=== PATIENT | female | born 1940 | race Two or more races ===

== ENCOUNTER 2017-10-07 09:33 | Outpatient (CLI) | payer MEDICARE | END 2017-10-07 11:33 | disposition home or self-care (01) | LOC: ECT 09:33 | DX: F33.3 Major depressive disorder, recurrent, severe with psychotic symptoms (principal); I12.9 Hypertensive chronic kidney disease with stage 1 through stage 4 chronic kidney disease, or unspecified chronic kidney disease; N18.9 Chronic kidney disease, unspecified; E78.5 Hyperlipidemia, unspecified; N28.1 Cyst of kidney, acquired; M81.0 Age-related osteoporosis without current pathological fracture; Z91.5 Personal history of self-harm; Z81.8 Family history of other mental and behavioral disorders; Z88.8 Allergy status to other drugs, medicaments and biological substances ==

== ENCOUNTER 2017-10-10 05:41 | Outpatient (RCR) | payer MEDICARE ==
[~2017-10-10] VITALS: Ht 153 cm; Wt 46.3 kg
[2017-10-10] MEDS ORDERED: Succinylcholine 20mg/ml 10ml vial ONE ×2 (05:42)
[2017-10-10] MEDS ORDERED: NS 500ML ONE ×2 (05:42)
[2017-10-10] MEDS ORDERED: Methohexital Sodium Syr 100mg/10ml IVP ONE ×2 (05:42)
[2017-10-10] MEDS ORDERED: Labetalol 5mg/ml 20ml vial IV ONE (05:42)
[2017-10-10 09:38] VITALS: BP 160/82
[2017-10-10] MEDS ORDERED: Sodium Chloride 500ML 500 ML IV ONE (09:54)
[2017-10-10 09:55] VITALS: BP 211/88
[2017-10-10 10:00] VITALS: BP 162/55
[2017-10-10 10:05] VITALS: BP 153/65
[2017-10-10 10:10] VITALS: BP 148/55
[2017-10-10 13:21] VITALS: BP 160/82
[2017-10-13 08:50] VITALS: BP 148/77
[2017-10-13] MEDS ORDERED: Methohexital Sodium Syr 100mg/10ml IVP ONE (09:14)
[2017-10-13] MEDS ORDERED: Labetalol 5mg/ml 20ml vial IV ONE (09:14)
[2017-10-13] MEDS ORDERED: NS 500ML ONE (09:14)
[2017-10-13] MEDS ORDERED: Succinylcholine 20mg/ml 10ml vial ONE (09:14)
[2017-10-13] MEDS ORDERED: Esmolol 100mg/10ml Inj ONE (09:14)
[2017-10-13] MEDS ORDERED: Sodium Chloride 500ML 500 ML IV ONE (09:14)
[2017-10-13 09:20] VITALS: BP 133/56
[2017-10-13 09:25] VITALS: BP 138/57
[2017-10-13 09:30] VITALS: BP 132/45
[2017-10-13 09:35] VITALS: BP 128/48
[2017-10-13 09:40] VITALS: BP 135/48
[2017-10-15 08:53] VITALS: BP 142/63
[2017-10-15] MEDS ORDERED: Methohexital Sodium Syr 100mg/10ml IVP ONE (09:00)
[2017-10-15] MEDS ORDERED: Succinylcholine 20mg/ml 10ml vial ONE (09:00)
[2017-10-15] MEDS ORDERED: NS 500ML ONE (09:00)
[2017-10-15] MEDS ORDERED: Labetalol 5mg/ml 20ml vial IV ONE (09:00)
[2017-10-15 09:20] VITALS: BP 100/60
[2017-10-15 09:25] VITALS: BP 145/59
[2017-10-15 09:30] VITALS: BP 148/56
[2017-10-15 09:35] VITALS: BP 150/58
[2017-10-16] MEDS ORDERED: Sodium Chloride 500ML 500 ML IV ONE (09:17)
[2017-10-17] MEDS ORDERED: NS 500ML ONE (08:00)
[2017-10-17] MEDS ORDERED: Labetalol 5mg/ml 20ml vial IV ONE (08:00)
[2017-10-17] MEDS ORDERED: Methohexital Sodium Syr 100mg/10ml IVP ONE (08:00)
[2017-10-17] MEDS ORDERED: Succinylcholine 20mg/ml 10ml vial ONE (08:00)
[2017-10-17 09:16] VITALS: BP 151/71
[2017-10-17] MEDS ORDERED: Sodium Chloride 500ML 500 ML IV ONE (09:41)
[2017-10-17 09:45] VITALS: BP 140/49
[2017-10-17 09:50] VITALS: BP 142/45
[2017-10-17 09:55] VITALS: BP 133/47
[2017-10-17 10:00] VITALS: BP 136/47
[2017-10-20 09:03] VITALS: BP 161/77
[2017-10-20 09:20] VITALS: BP 164/89
[2017-10-20] MEDS ORDERED: Sodium Chloride 500ML 500 ML IV ONE (09:20)
[2017-10-20 09:25] VITALS: BP 177/86
[2017-10-20 09:30] VITALS: BP 159/61
[2017-10-20 09:35] VITALS: BP 151/57
[2017-10-22] MEDS ORDERED: Succinylcholine 20mg/ml 10ml vial ONE (07:00)
[2017-10-22] MEDS ORDERED: Methohexital Sodium Syr 100mg/10ml IVP ONE (07:00)
[2017-10-22] MEDS ORDERED: NS 500ML ONE (07:00)
[2017-10-22] MEDS ORDERED: Labetalol 5mg/ml 20ml vial IV ONE (07:00)
[2017-10-22 10:55] VITALS: BP 177/62
[2017-10-22] MEDS ORDERED: Sodium Chloride 500ML 500 ML IV ONE (11:15)
[2017-10-22 11:20] VITALS: BP 219/103
[2017-10-22 11:25] VITALS: BP 183/68
[2017-10-22 11:30] VITALS: BP 160/63
[2017-10-22 11:35] VITALS: BP 158/62
[2017-10-27] MEDS ORDERED: Succinylcholine 20mg/ml 10ml vial ONE (06:00)
[2017-10-27] MEDS ORDERED: Esmolol 100mg/10ml Inj ONE (06:00)
[2017-10-27] MEDS ORDERED: NS 500ML ONE (06:00)
[2017-10-27] MEDS ORDERED: Methohexital Sodium Syr 100mg/10ml IVP ONE (06:00)
[2017-10-27] MEDS ORDERED: Labetalol 5mg/ml 20ml vial IV ONE (06:00)
== END 2017-10-29 | disposition home or self-care (01) ==
LOC: ECT 05:41
DX: F33.3 Major depressive disorder, recurrent, severe with psychotic symptoms (principal); E78.5 Hyperlipidemia, unspecified; M81.0 Age-related osteoporosis without current pathological fracture; I12.9 Hypertensive chronic kidney disease with stage 1 through stage 4 chronic kidney disease, or unspecified chronic kidney disease; N18.9 Chronic kidney disease, unspecified; N25.81 Secondary hyperparathyroidism of renal origin
CPT/HCPCS: 90870; J0330; J7040

== ENCOUNTER 2017-11-03 06:05 | Outpatient (RCR) | payer MEDICARE ==
[~2017-11-03] VITALS: Ht 152.4 cm; Wt 46.3 kg
[2017-11-03] MEDS ORDERED: NS 500ML ONE (06:06)
[2017-11-03] MEDS ORDERED: Succinylcholine 20mg/ml 10ml vial ONE (06:06)
[2017-11-03] MEDS ORDERED: Labetalol 5mg/ml 20ml vial IV ONE (06:06)
[2017-11-03] MEDS ORDERED: Methohexital Sodium Syr 100mg/10ml IVP ONE (06:06)
[2017-11-03 09:15] VITALS: BP 174/77
[2017-11-03 09:45] VITALS: BP 175/65
[2017-11-03] MEDS ORDERED: Sodium Chloride 500ML 500 ML IV ONE (09:48)
[2017-11-03 09:50] VITALS: BP 156/75
[2017-11-03 09:55] VITALS: BP 154/53
[2017-11-03 10:00] VITALS: BP 156/56
[2017-11-03 10:05] VITALS: BP 146/54
[2017-11-14] MEDS ORDERED: Methohexital Sodium Syr 100mg/10ml IVP ONE (07:00)
[2017-11-14] MEDS ORDERED: NS 500ML ONE (07:00)
[2017-11-14] MEDS ORDERED: Succinylcholine 20mg/ml 10ml vial ONE (07:00)
[2017-11-14] MEDS ORDERED: Labetalol 5mg/ml 20ml vial IV ONE (07:00)
[2017-11-14 08:50] VITALS: BP 163/76
[2017-11-14] MEDS ORDERED: Sodium Chloride 500ML 500 ML IV ONE (09:06)
[2017-11-14 09:10] VITALS: BP 168/84
[2017-11-14 09:15] VITALS: BP 168/84
[2017-11-14 09:20] VITALS: BP 153/65
[2017-11-14 09:25] VITALS: BP 160/64
== END 2017-11-26 | disposition home or self-care (01) ==
LOC: ECT 06:05
DX: F33.3 Major depressive disorder, recurrent, severe with psychotic symptoms (principal)
CPT/HCPCS: 90870; J0330; J7040

== ENCOUNTER 2017-12-01 08:48 | Outpatient (RCR) | payer MEDICARE ==
[~2017-12-01] VITALS: Ht 152.4 cm; Wt 46.3 kg
[2017-12-01] MEDS ORDERED: NS 500ML ONE (08:49)
[2017-12-01] MEDS ORDERED: Methohexital Sodium Syr 100mg/10ml IVP ONE (08:49)
[2017-12-01] MEDS ORDERED: Succinylcholine 20mg/ml 10ml vial ONE (08:49)
[2017-12-01] MEDS ORDERED: Labetalol 5mg/ml 20ml vial IV ONE (08:49)
[2017-12-01 09:37] VITALS: BP 156/67
[2017-12-01 09:50] VITALS: BP 222/113
[2017-12-01] MEDS ORDERED: Sodium Chloride 500ML 500 ML IV ONE (09:50)
[2017-12-01 09:55] VITALS: BP 166/60
[2017-12-01 10:00] VITALS: BP 157/93
[2017-12-01 10:05] VITALS: BP 143/52
[2017-12-24] MEDS ORDERED: Succinylcholine 20mg/ml 10ml vial ONE (08:00)
[2017-12-24] MEDS ORDERED: Methohexital Sodium Syr 100mg/10ml IVP ONE (08:00)
[2017-12-24] MEDS ORDERED: Labetalol 5mg/ml 20ml vial IV ONE (08:00)
[2017-12-24] MEDS ORDERED: NS 500ML ONE (08:00)
[2017-12-24 09:25] VITALS: BP 142/63
[2017-12-24] MEDS ORDERED: Sodium Chloride 500ML 500 ML IV ONE (09:52)
[2017-12-24 09:55] VITALS: BP 113/88
[2017-12-24 10:00] VITALS: BP 114/62
[2017-12-24 10:05] VITALS: BP 108/60
[2017-12-24 10:10] VITALS: BP 127/60
== END 2017-12-27 | disposition home or self-care (01) ==
LOC: ECT 08:48
DX: F33.3 Major depressive disorder, recurrent, severe with psychotic symptoms (principal)
CPT/HCPCS: 90870; J0330; J7040

== ENCOUNTER 2018-01-21 06:57 | Outpatient (RCR) | payer MEDICARE ==
[~2018-01-21] VITALS: Ht 33 cm; Wt 0.5 kg
[2018-01-21] MEDS ORDERED: NS 500ML ONE (06:58)
[2018-01-21] MEDS ORDERED: Succinylcholine 20mg/ml 10ml vial ONE (06:58)
[2018-01-21] MEDS ORDERED: Methohexital Sodium Syr 100mg/10ml IVP ONE (06:58)
[2018-01-21] MEDS ORDERED: Labetalol 5mg/ml 20ml vial IV ONE (06:58)
[2018-01-21 08:59] VITALS: BP 159/80
[2018-01-21] MEDS ORDERED: Sodium Chloride 500ML 500 ML IV ONE (09:16)
[2018-01-21 09:20] VITALS: BP 169/64
[2018-01-21 09:25] VITALS: BP 150/57
[2018-01-21 09:30] VITALS: BP 137/62
[2018-01-21 09:35] VITALS: BP 146/57
[2018-01-21 09:40] VITALS: BP 138/43
== END 2018-01-26 | disposition home or self-care (01) ==
LOC: ECT 06:57
DX: F33.3 Major depressive disorder, recurrent, severe with psychotic symptoms (principal)
CPT/HCPCS: 90870; J0330; J7040

== ENCOUNTER 2018-02-20 06:43 | Outpatient (RCR) | payer MEDICARE ==
[~2018-02-20] VITALS: Ht 152.4 cm; Wt 102.0 kg
[2018-02-20] MEDS ORDERED: Succinylcholine 20mg/ml 10ml vial ONE (06:44)
[2018-02-20] MEDS ORDERED: Labetalol 5mg/ml 20ml vial IV ONE (06:44)
[2018-02-20] MEDS ORDERED: Methohexital Sodium Syr 100mg/10ml IVP ONE (06:44)
[2018-02-20] MEDS ORDERED: NS 500ML ONE (06:44)
[2018-02-20 07:50] VITALS: BP 158/79
[2018-02-20] MEDS ORDERED: Sodium Chloride 500ML 500 ML IV ONE (08:08)
[2018-02-20 08:10] VITALS: BP 167/68
[2018-02-20 08:15] VITALS: BP 159/69
[2018-02-20 08:20] VITALS: BP 141/53
[2018-02-20 08:25] VITALS: BP 144/60
== END 2018-02-26 | disposition home or self-care (01) ==
LOC: ECT 06:43
DX: F33.3 Major depressive disorder, recurrent, severe with psychotic symptoms (principal)
CPT/HCPCS: 90870; J0330; J7040

== ENCOUNTER 2018-03-18 04:44 | Outpatient (RCR) | payer MEDICARE ==
[~2018-03-18] VITALS: Ht 152.4 cm; Wt 46.3 kg
[2018-03-18] MEDS ORDERED: NS 500ML ONE (04:45)
[2018-03-18] MEDS ORDERED: Methohexital Sodium Syr 100mg/10ml IVP ONE (04:45)
[2018-03-18] MEDS ORDERED: Succinylcholine 20mg/ml 10ml vial ONE (04:45)
[2018-03-18] MEDS ORDERED: Labetalol 5mg/ml 20ml vial IV ONE (04:45)
[2018-03-18 08:07] VITALS: BP 151/67
[2018-03-18] MEDS ORDERED: Sodium Chloride 500ML 500 ML IV ONE (08:22)
[2018-03-18 08:25] VITALS: BP 182/64
[2018-03-18 08:30] VITALS: BP 151/68
[2018-03-18 08:35] VITALS: BP 134/73
[2018-03-18 08:40] VITALS: BP 140/51
== END 2018-03-28 | disposition home or self-care (01) ==
LOC: ECT 04:44
DX: F33.3 Major depressive disorder, recurrent, severe with psychotic symptoms (principal)
CPT/HCPCS: 90870; J0330; J7040

== ENCOUNTER 2018-04-15 04:51 | Outpatient (RCR) | payer MEDICARE ==
[~2018-04-15] VITALS: Ht 152.4 cm; Wt 46.3 kg
[2018-04-15] MEDS ORDERED: Labetalol 5mg/ml 20ml vial IV ONE (04:52)
[2018-04-15] MEDS ORDERED: NS 500ML ONE (04:52)
[2018-04-15] MEDS ORDERED: Methohexital Sodium Syr 100mg/10ml IVP ONE (04:52)
[2018-04-15] MEDS ORDERED: Succinylcholine 20mg/ml 10ml vial ONE (04:52)
[2018-04-15 08:15] VITALS: BP 156/63
[2018-04-15] MEDS ORDERED: Sodium Chloride 500ML 500 ML IV ONE (08:30)
[2018-04-15 08:35] VITALS: BP 118/100
[2018-04-15 08:40] VITALS: BP 153/53
[2018-04-15 08:45] VITALS: BP 139/65
[2018-04-15 08:50] VITALS: BP 120/41
== END 2018-04-28 | disposition home or self-care (01) ==
LOC: ECT 04:51
DX: F33.3 Major depressive disorder, recurrent, severe with psychotic symptoms (principal)
CPT/HCPCS: 90870; J0330; J7040

== ENCOUNTER 2018-05-15 04:28 | Outpatient (RCR) | payer MEDICARE ==
[~2018-05-15] VITALS: Ht 152.4 cm; Wt 46.3 kg
[2018-05-15] MEDS ORDERED: NS 500ML ONE (04:29)
[2018-05-15] MEDS ORDERED: Methohexital Sodium Syr 100mg/10ml IVP ONE (04:29)
[2018-05-15] MEDS ORDERED: Labetalol 5mg/ml 20ml vial IV ONE (04:29)
[2018-05-15] MEDS ORDERED: Succinylcholine 20mg/ml 10ml vial ONE (04:29)
[2018-05-15 08:22] VITALS: BP 153/72
[2018-05-15] MEDS ORDERED: Sodium Chloride 500ML 500 ML IV ONE (08:38)
[2018-05-15 08:40] VITALS: BP 143/61
[2018-05-15 08:45] VITALS: BP 135/58
[2018-05-15 08:50] VITALS: BP 125/43
[2018-05-15 08:55] VITALS: BP 139/41
== END 2018-05-29 | disposition home or self-care (01) ==
LOC: ECT 04:28
DX: F33.3 Major depressive disorder, recurrent, severe with psychotic symptoms (principal)
CPT/HCPCS: 90870; J0330; J7040

== ENCOUNTER 2018-06-17 05:55 | Outpatient (RCR) | payer MEDICARE ==
[~2018-06-17] VITALS: Ht 30.5 cm; Wt 0.5 kg
[2018-06-17] MEDS ORDERED: NS 500ML ONE (05:56)
[2018-06-17] MEDS ORDERED: Methohexital Sodium Syr 100mg/10ml IVP ONE (05:56)
[2018-06-17] MEDS ORDERED: Succinylcholine 20mg/ml 10ml vial ONE (05:56)
[2018-06-17] MEDS ORDERED: Labetalol 5mg/ml 20ml vial IV ONE (05:56)
[2018-06-17 10:17] VITALS: BP 163/89
[2018-06-17] MEDS ORDERED: Sodium Chloride 500ML 500 ML IV ONE (10:31)
[2018-06-17 10:35] VITALS: BP 197/84
[2018-06-17 10:40] VITALS: BP 139/51
[2018-06-17 10:45] VITALS: BP 132/51
[2018-06-17 10:50] VITALS: BP 137/48
== END 2018-06-28 | disposition home or self-care (01) ==
LOC: ECT 05:55
DX: F33.3 Major depressive disorder, recurrent, severe with psychotic symptoms (principal)
CPT/HCPCS: 90870; J0330; J7040

== ENCOUNTER 2018-07-22 04:44 | Outpatient (RCR) | payer MEDICARE ==
[~2018-07-22] VITALS: Ht 30.5 cm; Wt 0.5 kg
[2018-07-22] MEDS ORDERED: Methohexital Sodium Syr 100mg/10ml IVP ONE (04:45)
[2018-07-22] MEDS ORDERED: Succinylcholine 20mg/ml 10ml vial ONE (04:45)
[2018-07-22] MEDS ORDERED: Labetalol 5mg/ml 20ml vial IV ONE (04:45)
[2018-07-22] MEDS ORDERED: NS 500ML ONE (04:45)
[2018-07-22 10:02] VITALS: BP 142/74
[2018-07-22] MEDS ORDERED: Sodium Chloride 500ML 500 ML IV ONE (10:18)
[2018-07-22 10:20] VITALS: BP 169/71
[2018-07-22 10:25] VITALS: BP 152/54
[2018-07-22 10:30] VITALS: BP 129/52
[2018-07-22 10:35] VITALS: BP 130/54
== END 2018-07-29 | disposition home or self-care (01) ==
LOC: ECT 04:44
DX: F33.3 Major depressive disorder, recurrent, severe with psychotic symptoms (principal)
CPT/HCPCS: 90870; J0330; J7040

== ENCOUNTER 2018-08-26 07:04 | Outpatient (RCR) | payer MEDICARE ==
[~2018-08-26] VITALS: Ht 152.4 cm; Wt 46.3 kg
[2018-08-26] MEDS ORDERED: NS 500ML ONE (07:05)
[2018-08-26] MEDS ORDERED: Labetalol 5mg/ml 20ml vial IV ONE (07:05)
[2018-08-26] MEDS ORDERED: Methohexital Sodium Syr 100mg/10ml IVP ONE (07:05)
[2018-08-26] MEDS ORDERED: Succinylcholine 20mg/ml 10ml vial ONE (07:05)
[2018-08-26 10:00] VITALS: BP 140/73
[2018-08-26] MEDS ORDERED: Sodium Chloride 500ML 500 ML IV ONE (10:21)
[2018-08-26 10:25] VITALS: BP 194/79
[2018-08-26 10:30] VITALS: BP 189/71
[2018-08-26 10:35] VITALS: BP 156/67
[2018-08-26 10:40] VITALS: BP 136/49
== END 2018-08-28 | disposition home or self-care (01) ==
LOC: ECT 07:04
DX: F33.3 Major depressive disorder, recurrent, severe with psychotic symptoms (principal)
CPT/HCPCS: 90870; J0330; J7040

== ENCOUNTER 2018-09-23 05:20 | Outpatient (RCR) | payer MEDICARE ==
[~2018-09-23] VITALS: Ht 30.5 cm; Wt 0.5 kg
[2018-09-23] MEDS ORDERED: NS 500ML ONE (05:21)
[2018-09-23] MEDS ORDERED: Methohexital Sodium Syr 100mg/10ml IVP ONE (05:21)
[2018-09-23] MEDS ORDERED: Succinylcholine 20mg/ml 10ml vial ONE (05:21)
[2018-09-23] MEDS ORDERED: Labetalol 5mg/ml 20ml vial IV ONE (05:21)
[2018-09-23 10:05] VITALS: BP 151/73
[2018-09-23] MEDS ORDERED: Sodium Chloride 500ML 500 ML IV ONE (10:23)
[2018-09-23 10:25] VITALS: BP 201/92
[2018-09-23 10:30] VITALS: BP 168/98
[2018-09-23 10:35] VITALS: BP 142/84
[2018-09-23 10:45] VITALS: BP 151/76
== END 2018-09-28 | disposition home or self-care (01) ==
LOC: ECT 05:20
DX: F33.3 Major depressive disorder, recurrent, severe with psychotic symptoms (principal); F43.10 Post-traumatic stress disorder, unspecified; I12.9 Hypertensive chronic kidney disease with stage 1 through stage 4 chronic kidney disease, or unspecified chronic kidney disease; N18.9 Chronic kidney disease, unspecified; K21.9 Gastro-esophageal reflux disease without esophagitis; M81.0 Age-related osteoporosis without current pathological fracture; E78.5 Hyperlipidemia, unspecified
CPT/HCPCS: 90870; J0330; J7040

== ENCOUNTER 2018-11-04 08:28 | Outpatient (RCR) | payer MEDICARE ==
[~2018-11-04] VITALS: Ht 152.4 cm; Wt 46.3 kg
[2018-11-04] MEDS ORDERED: Labetalol 5mg/ml 20ml vial IV ONE (08:29)
[2018-11-04] MEDS ORDERED: Succinylcholine 20mg/ml 10ml vial ONE (08:29)
[2018-11-04] MEDS ORDERED: NS 500ML ONE (08:29)
[2018-11-04] MEDS ORDERED: Methohexital Sodium Syr 100mg/10ml IVP ONE (08:29)
[2018-11-04 10:13] VITALS: BP 156/79
[2018-11-04 10:50] VITALS: BP 182/72
[2018-11-04 10:55] VITALS: BP 163/70
[2018-11-04 11:00] VITALS: BP 145/59
[2018-11-04 11:05] VITALS: BP 147/56
== END 2018-11-26 | disposition home or self-care (01) ==
LOC: ECT 08:28
DX: F33.3 Major depressive disorder, recurrent, severe with psychotic symptoms (principal); E78.5 Hyperlipidemia, unspecified; N25.81 Secondary hyperparathyroidism of renal origin; M81.0 Age-related osteoporosis without current pathological fracture; I12.9 Hypertensive chronic kidney disease with stage 1 through stage 4 chronic kidney disease, or unspecified chronic kidney disease; N18.9 Chronic kidney disease, unspecified
CPT/HCPCS: 90870; J0330; J7040

== ENCOUNTER 2018-12-16 06:35 | Outpatient (RCR) | payer MEDICARE ==
[~2018-12-16] VITALS: Ht 30.5 cm; Wt 0.5 kg
[2018-12-21] MEDS ORDERED: Succinylcholine 20mg/ml 10ml vial ONE (06:00)
[2018-12-21] MEDS ORDERED: Labetalol 5mg/ml 20ml vial IV ONE (06:00)
[2018-12-21] MEDS ORDERED: NS 500ML ONE (06:00)
[2018-12-21] MEDS ORDERED: Methohexital Sodium Syr 100mg/10ml IVP ONE (06:00)
[2018-12-21 10:11] VITALS: BP 152/72
[2018-12-21] MEDS ORDERED: Atropine Sulfate 0.4mg/ml inj IVP PRN (10:38)
[2018-12-21 10:40] VITALS: BP 144/56
[2018-12-21 10:45] VITALS: BP 141/42
[2018-12-21 10:50] VITALS: BP 133/43
[2018-12-21 10:55] VITALS: BP 136/43
== END 2018-12-27 | disposition home or self-care (01) ==
LOC: ECT 06:35
DX: F33.3 Major depressive disorder, recurrent, severe with psychotic symptoms (principal)
CPT/HCPCS: 90870; J0330; J7040

== ENCOUNTER 2019-02-10 07:16 | Outpatient (RCR) | payer MEDICARE ==
[~2019-02-10] VITALS: Ht 30.5 cm; Wt 0.5 kg
[2019-02-10] MEDS ORDERED: NS 500ML ONE (07:17)
[2019-02-10] MEDS ORDERED: Methohexital Sodium Syr 100mg/10ml IVP ONE (07:17)
[2019-02-10] MEDS ORDERED: Labetalol 5mg/ml 20ml vial IV ONE (07:17)
[2019-02-10] MEDS ORDERED: Succinylcholine 20mg/ml 10ml vial ONE (07:17)
[2019-02-10 10:03] VITALS: BP 148/73
[2019-02-10 10:25] VITALS: BP 148/73
[2019-02-10 10:30] VITALS: BP 139/57
[2019-02-10 10:35] VITALS: BP 131/61
[2019-02-10 10:40] VITALS: BP 137/55
== END 2019-02-26 | disposition home or self-care (01) ==
LOC: ECT 07:16
DX: F33.3 Major depressive disorder, recurrent, severe with psychotic symptoms (principal)
CPT/HCPCS: 90870; J0330; J7040

== ENCOUNTER 2019-04-07 07:32 | Outpatient (RCR) | payer MEDICARE ==
[~2019-04-07] VITALS: Ht 152.4 cm; Wt 46.3 kg
[~2019-04-07 07:32] MED LIST: Labetalol 5mg/ml 20ml vial IV ONE; Methohexital Sodium Syr 100mg/10ml IVP ONE; NS 500ML ONE; Succinylcholine 20mg/ml 10ml vial ONE
[2019-04-07 10:38] VITALS: BP 138/64
[2019-04-07 10:57] VITALS: BP 185/84
[2019-04-07 11:02] VITALS: BP 132/44
[2019-04-07 11:07] VITALS: BP 142/40
[2019-04-07 11:12] VITALS: BP 148/45
== END 2019-04-28 | disposition home or self-care (01) ==
LOC: ECT 07:32
DX: F33.3 Major depressive disorder, recurrent, severe with psychotic symptoms (principal)
CPT/HCPCS: 90870; J0330; J7040

== ENCOUNTER 2019-06-02 08:47 | Outpatient (RCR) | payer MEDICARE ==
[~2019-06-02] VITALS: Ht 30.5 cm; Wt 0.5 kg
[2019-06-02] MEDS ORDERED: Succinylcholine 20mg/ml 10ml vial ONE (08:48)
[2019-06-02] MEDS ORDERED: NS 500ML ONE (08:48)
[2019-06-02] MEDS ORDERED: Methohexital Sodium Syr 100mg/10ml IVP ONE (08:48)
[2019-06-02] MEDS ORDERED: Labetalol 5mg/ml 20ml vial IV ONE (08:48)
[2019-06-02 10:57] VITALS: BP 165/78
[2019-06-02 11:15] VITALS: BP 153/55
[2019-06-02 11:20] VITALS: BP 147/50
[2019-06-02 11:25] VITALS: BP 144/54
[2019-06-02 11:30] VITALS: BP 141/52
== END 2019-06-28 | disposition home or self-care (01) ==
LOC: ECT 08:47
DX: F33.3 Major depressive disorder, recurrent, severe with psychotic symptoms (principal)
CPT/HCPCS: 90870; J0330; J7040

== ENCOUNTER 2020-01-28 06:41 | Outpatient (RCR) | payer MEDICARE ==
[~2020-01-28] VITALS: Ht 152.4 cm; Wt 45.4 kg
[~2020-01-28 06:41] MED LIST changes: -Labetalol 5mg/ml 20ml vial IV ONE
[2020-01-28 10:45] VITALS: BP 134/57
[2020-01-28] MEDS ORDERED: Atropine Sulfate 0.4mg/ml inj IVP PRN (11:14)
[2020-01-28] MEDS ORDERED: Lidocaine 2% 100mg/5ml Carp IV PRN (11:14)
[2020-01-28 11:15] VITALS: BP 151/74
[2020-01-28 11:20] VITALS: BP 136/91
[2020-01-28 11:25] VITALS: BP 119/43
[2020-01-28 11:30] VITALS: BP 110/36
[2020-01-31] MEDS ORDERED: Labetalol 5mg/ml 20ml vial IV ONE (06:00)
[2020-01-31] MEDS ORDERED: Succinylcholine 20mg/ml 10ml vial ONE (06:00)
[2020-01-31] MEDS ORDERED: NS 500ML ONE (06:00)
[2020-01-31] MEDS ORDERED: Methohexital Sodium Syr 100mg/10ml IVP ONE (06:00)
[2020-01-31 11:23] VITALS: BP 147/65
[2020-01-31 11:48] VITALS: BP 185/83
[2020-01-31] MEDS ORDERED: Atropine Sulfate 0.4mg/ml inj IVP PRN (11:48)
[2020-01-31] MEDS ORDERED: Lidocaine 2% 100mg/5ml Carp IV PRN (11:48)
[2020-01-31 11:53] VITALS: BP 187/47
[2020-01-31 11:58] VITALS: BP 140/44
[2020-01-31 12:03] VITALS: BP 122/46
[2020-02-02 10:44] VITALS: BP 119/49
[2020-02-02 11:12] VITALS: BP 134/60
[2020-02-02 11:17] VITALS: BP 85/49
[2020-02-02 11:22] VITALS: BP 107/33
[2020-02-02 11:27] VITALS: BP 116/46
[2020-02-11] MEDS ORDERED: NS 500ML ONE (09:00)
[2020-02-11] MEDS ORDERED: Methohexital Sodium Syr 100mg/10ml IVP ONE (09:00)
[2020-02-11] MEDS ORDERED: Succinylcholine 20mg/ml 10ml vial ONE (09:00)
[2020-02-11 10:31] VITALS: BP 134/53
[2020-02-11 11:00] VITALS: BP 112/36
[2020-02-11 11:05] VITALS: BP 109/39
[2020-02-11 11:10] VITALS: BP 101/18
[2020-02-11 11:15] VITALS: BP 112/47
[2020-02-14] MEDS ORDERED: Succinylcholine 20mg/ml 10ml vial ONE (09:00)
[2020-02-14] MEDS ORDERED: NS 500ML ONE (09:00)
[2020-02-14] MEDS ORDERED: Methohexital Sodium Syr 100mg/10ml IVP ONE (09:00)
[2020-02-14 09:44] VITALS: BP 134/78
[2020-02-14 10:08] VITALS: BP 104/74
[2020-02-14 10:13] VITALS: BP 131/64
[2020-02-14 10:18] VITALS: BP 126/48
[2020-02-14 10:23] VITALS: BP 110/41
[2020-02-25 08:52] VITALS: BP 129/63
[2020-02-25] MEDS ORDERED: Methohexital Sodium Syr 100mg/10ml IVP ONE (09:00)
[2020-02-25] MEDS ORDERED: Succinylcholine 20mg/ml 10ml vial ONE (09:00)
[2020-02-25] MEDS ORDERED: NS 500ML ONE (09:00)
[2020-02-25 09:11] VITALS: BP 177/67
[2020-02-25 09:16] VITALS: BP 135/50
[2020-02-25 09:21] VITALS: BP 111/52
[2020-02-25 09:26] VITALS: BP 115/45
== END 2020-02-27 | disposition home or self-care (01) ==
LOC: ECT 06:41
DX: F33.2 Major depressive disorder, recurrent severe without psychotic features (principal)
CPT/HCPCS: 90870; J0330; J7040

== ENCOUNTER 2020-02-28 06:44 | Outpatient (RCR) | payer MEDICARE ==
[~2020-02-28] VITALS: Ht 152.4 cm; Wt 31.8 kg
[~2020-02-28 06:44] MED LIST changes: +Labetalol 5mg/ml 20ml vial IV ONE
[2020-02-28 08:53] VITALS: BP 129/77
[2020-02-28] MEDS ORDERED: Atropine Sulfate 0.4mg/ml inj IVP PRN (09:19)
[2020-02-28] MEDS ORDERED: Lidocaine 2% 100mg/5ml Carp IV PRN (09:19)
[2020-02-28 09:20] VITALS: BP 160/71
[2020-02-28 09:25] VITALS: BP 129/50
[2020-02-28 09:30] VITALS: BP 117/42
[2020-02-28 09:38] VITALS: BP 110/42
[2020-03-01 08:55] VITALS: BP 151/73
[2020-03-01] MEDS ORDERED: NS 500ML ONE (09:00)
[2020-03-01] MEDS ORDERED: Succinylcholine 20mg/ml 10ml vial ONE (09:00)
[2020-03-01] MEDS ORDERED: Etomidate 40mg/20ml Inj IV ONE (09:00)
[2020-03-01] MEDS ORDERED: Labetalol 5mg/ml 20ml vial IV ONE (09:00)
[2020-03-01 09:15] VITALS: BP 174/61
[2020-03-01 09:20] VITALS: BP 143/45
[2020-03-01 09:25] VITALS: BP 138/43
[2020-03-01 09:30] VITALS: BP 137/41
[2020-03-03] MEDS ORDERED: Etomidate 40mg/20ml Inj IV ONE (06:00)
[2020-03-03] MEDS ORDERED: NS 500ML ONE (06:00)
[2020-03-03] MEDS ORDERED: Labetalol 5mg/ml 20ml vial IV ONE (06:00)
[2020-03-03] MEDS ORDERED: Succinylcholine 20mg/ml 10ml vial ONE (06:00)
[2020-03-03 09:05] VITALS: BP 152/97
[2020-03-03 09:10] VITALS: BP 154/78
[2020-03-03 09:15] VITALS: BP 142/54
[2020-03-03 09:20] VITALS: BP 139/59
[2020-03-03 10:05] VITALS: BP 153/62
[2020-03-06] MEDS ORDERED: Succinylcholine 20mg/ml 10ml vial ONE (06:00)
[2020-03-06] MEDS ORDERED: Etomidate 40mg/20ml Inj IV ONE (06:00)
[2020-03-06] MEDS ORDERED: NS 500ML ONE (06:00)
[2020-03-06] MEDS ORDERED: Labetalol 5mg/ml 20ml vial IV ONE (06:00)
[2020-03-06 08:52] VITALS: BP 193/93
[2020-03-06 08:57] VITALS: BP 191/90
[2020-03-06 09:02] VITALS: BP 158/54
[2020-03-06 09:07] VITALS: BP 150/55
[2020-03-24] MEDS ORDERED: Labetalol 5mg/ml 20ml vial IV ONE (06:00)
[2020-03-24] MEDS ORDERED: NS 500ML ONE (06:00)
[2020-03-24] MEDS ORDERED: Etomidate 40mg/20ml Inj IV ONE (06:00)
[2020-03-24] MEDS ORDERED: Succinylcholine 20mg/ml 10ml vial ONE (06:00)
[2020-03-24 09:28] VITALS: BP 136/75
[2020-03-24 09:45] VITALS: BP 174/89
[2020-03-24 09:50] VITALS: BP 153/62
[2020-03-24 09:55] VITALS: BP 123/42
[2020-03-24 10:00] VITALS: BP 109/36
[2020-03-27] MEDS ORDERED: Etomidate 40mg/20ml Inj IV ONE (09:00)
[2020-03-27] MEDS ORDERED: Succinylcholine 20mg/ml 10ml vial ONE (09:00)
[2020-03-27] MEDS ORDERED: NS 500ML ONE (09:00)
[2020-03-27 10:44] VITALS: BP 148/76
[2020-03-27] MEDS ORDERED: Lidocaine 2% 100mg/5ml Carp IV PRN (11:09)
[2020-03-27] MEDS ORDERED: Atropine Sulfate 0.4mg/ml inj IVP PRN (11:09)
[2020-03-27 11:10] VITALS: BP 161/83
[2020-03-27 11:15] VITALS: BP 135/61
[2020-03-27 11:20] VITALS: BP 128/76
[2020-03-27 11:25] VITALS: BP 138/89
== END 2020-03-28 | disposition home or self-care (01) ==
LOC: ECT 06:44
DX: F33.3 Major depressive disorder, recurrent, severe with psychotic symptoms (principal)
CPT/HCPCS: 90870; J0330; J7040

== ENCOUNTER 2020-03-29 09:22 | Outpatient (RCR) | payer MEDICARE ==
[~2020-03-29] VITALS: Ht 152.4 cm; Wt 31.8 kg
[2020-03-29 08:58] VITALS: BP 142/58
[2020-03-29 09:14] VITALS: BP 181/70
[2020-03-29 09:19] VITALS: BP 162/69
[2020-03-29] MEDS ORDERED: Etomidate 40mg/20ml Inj IV ONE (09:23)
[2020-03-29] MEDS ORDERED: Succinylcholine 20mg/ml 10ml vial ONE (09:23)
[2020-03-29] MEDS ORDERED: Labetalol 5mg/ml 20ml vial IV ONE (09:23)
[2020-03-29] MEDS ORDERED: NS 500ML ONE (09:23)
[2020-03-29 09:24] VITALS: BP 122/43
[2020-03-29 09:29] VITALS: BP 109/44
[2020-04-03] MEDS ORDERED: Labetalol 5mg/ml 20ml vial IV ONE (06:00)
[2020-04-03] MEDS ORDERED: Succinylcholine 20mg/ml 10ml vial ONE (06:00)
[2020-04-03] MEDS ORDERED: Etomidate 40mg/20ml Inj IV ONE (06:00)
[2020-04-03] MEDS ORDERED: NS 500ML ONE (06:00)
[2020-04-03 09:08] VITALS: BP 145/70
[2020-04-03] MEDS ORDERED: Lidocaine 2% 100mg/5ml Carp IV PRN (09:34)
[2020-04-03] MEDS ORDERED: Atropine Sulfate 0.4mg/ml inj IVP PRN (09:34)
[2020-04-03 09:35] VITALS: BP 192/77
[2020-04-03 09:40] VITALS: BP 157/55
[2020-04-03 09:45] VITALS: BP 139/45
[2020-04-03 09:50] VITALS: BP 139/43
[2020-04-05] MEDS ORDERED: Etomidate 40mg/20ml Inj IV ONE (06:00)
[2020-04-05] MEDS ORDERED: NS 500ML ONE (06:00)
[2020-04-05] MEDS ORDERED: Labetalol 5mg/ml 20ml vial IV ONE (06:00)
[2020-04-05] MEDS ORDERED: Succinylcholine 20mg/ml 10ml vial ONE (06:00)
[2020-04-05 08:25] VITALS: BP 136/64
[2020-04-05 08:41] VITALS: BP 178/72
[2020-04-05 08:46] VITALS: BP 124/57
[2020-04-05 08:51] VITALS: BP 118/43
[2020-04-05 08:56] VITALS: BP 113/36
[2020-04-07] MEDS ORDERED: Caffeine Citrate 60mg/3ml vial IV ONE (06:00)
[2020-04-07] MEDS ORDERED: NS 500ML ONE (06:00)
[2020-04-07] MEDS ORDERED: Etomidate 40mg/20ml Inj IV ONE (06:00)
[2020-04-07] MEDS ORDERED: Labetalol 5mg/ml 20ml vial IV ONE (06:00)
[2020-04-07] MEDS ORDERED: Succinylcholine 20mg/ml 10ml vial ONE (06:00)
[2020-04-07 08:46] VITALS: BP 139/83
[2020-04-07 09:02] VITALS: BP 199/93
[2020-04-07 09:07] VITALS: BP 194/85
[2020-04-07 09:12] VITALS: BP 178/66
[2020-04-07 09:17] VITALS: BP 122/71
[2020-04-10] MEDS ORDERED: Caffeine Citrate 60mg/3ml vial IV ONE (07:00)
[2020-04-10] MEDS ORDERED: Labetalol 5mg/ml 20ml vial IV ONE (07:00)
[2020-04-10] MEDS ORDERED: Etomidate 40mg/20ml Inj IV ONE (07:00)
[2020-04-10] MEDS ORDERED: NS 500ML ONE (07:00)
[2020-04-10] MEDS ORDERED: Succinylcholine 20mg/ml 10ml vial ONE (07:00)
[2020-04-10 08:49] VITALS: BP 136/68
[2020-04-10] MEDS ORDERED: Lidocaine 2% 100mg/5ml Carp IV PRN (09:09)
[2020-04-10] MEDS ORDERED: Atropine Sulfate 0.4mg/ml inj IVP PRN (09:09)
[2020-04-10 09:10] VITALS: BP 220/72
[2020-04-10 09:15] VITALS: BP 129/51
[2020-04-10 09:20] VITALS: BP 152/55
[2020-04-10 09:25] VITALS: BP 141/54
[2020-04-14] MEDS ORDERED: Etomidate 40mg/20ml Inj IV ONE (09:00)
[2020-04-14] MEDS ORDERED: Succinylcholine 20mg/ml 10ml vial ONE (09:00)
[2020-04-14] MEDS ORDERED: Caffeine Citrate 60mg/3ml vial IV ONE (09:00)
[2020-04-14] MEDS ORDERED: NS 500ML ONE (09:00)
[2020-04-14] MEDS ORDERED: Labetalol 5mg/ml 20ml vial IV ONE (09:00)
[2020-04-14 09:02] VITALS: BP 139/71
[2020-04-14 09:20] VITALS: BP 164/91
[2020-04-14 09:25] VITALS: BP 166/82
[2020-04-14 09:30] VITALS: BP 152/63
[2020-04-14 09:35] VITALS: BP 140/55
[2020-04-19] MEDS ORDERED: Succinylcholine 20mg/ml 10ml vial ONE ×2 (07:00)
[2020-04-19] MEDS ORDERED: Caffeine Citrate 60mg/3ml vial IV ONE (07:00)
[2020-04-19] MEDS ORDERED: Midazolam 2mg/2ml Inj ONE (07:00)
[2020-04-19] MEDS ORDERED: Labetalol 5mg/ml 20ml vial IV ONE (07:00)
[2020-04-19] MEDS ORDERED: NS 500ML ONE ×2 (07:00)
[2020-04-19] MEDS ORDERED: Glycopyrrolate 0.2mg/ml 1ml Vial ONE (07:00)
[2020-04-19] MEDS ORDERED: Etomidate 40mg/20ml Inj IV ONE ×2 (07:00)
[2020-04-19 09:50] VITALS: BP 141/64
[2020-04-19] MEDS ORDERED: Atropine Sulfate 0.4mg/ml inj IVP PRN (10:09)
[2020-04-19] MEDS ORDERED: Lidocaine 2% 100mg/5ml Carp IV PRN (10:09)
[2020-04-19 10:10] VITALS: BP 198/58
[2020-04-19 10:15] VITALS: BP 173/54
[2020-04-19 10:20] VITALS: BP 141/55
[2020-04-19 10:25] VITALS: BP 126/51
[2020-04-26] VITALS (7 sets, daily range): BP systolic 124–190; BP diastolic 34–97
[2020-04-26] MEDS ORDERED: NS 500ML ONE (06:00)
[2020-04-26] MEDS ORDERED: Labetalol 5mg/ml 20ml vial IV ONE (06:00)
[2020-04-26] MEDS ORDERED: Caffeine Citrate 60mg/3ml vial IV ONE (06:00)
[2020-04-26] MEDS ORDERED: Etomidate 40mg/20ml Inj IV ONE (06:00)
[2020-04-26] MEDS ORDERED: Succinylcholine 20mg/ml 10ml vial ONE (06:00)
== END 2020-04-28 | disposition home or self-care (01) ==
LOC: ECT 09:22
DX: F33.3 Major depressive disorder, recurrent, severe with psychotic symptoms (principal)
CPT/HCPCS: 90870; J0330; J0706; J2250; J7040

== ENCOUNTER 2020-05-10 04:28 | Outpatient (RCR) | payer MEDICARE ==
[~2020-05-10] VITALS: Ht 30.5 cm; Wt 0.5 kg
[2020-05-10] VITALS (7 sets, daily range): BP systolic 118–149; BP diastolic 49–63
[2020-05-10] MEDS ORDERED: NS 500ML ONE (04:29)
[2020-05-10] MEDS ORDERED: Etomidate 40mg/20ml Inj IV ONE ×2 (04:29)
[2020-05-10] MEDS ORDERED: Succinylcholine 20mg/ml 10ml vial ONE (04:29)
[2020-05-10] MEDS ORDERED: Caffeine Citrate 60mg/3ml vial IV ONE (04:29)
[2020-05-10] MEDS ORDERED: Labetalol 5mg/ml 20ml vial IV ONE (04:29)
[2020-05-10] MEDS ORDERED: Atropine Sulfate 0.4mg/ml inj IVP PRN (09:44)
== END 2020-05-29 | disposition home or self-care (01) ==
LOC: ECT 04:28
DX: F33.3 Major depressive disorder, recurrent, severe with psychotic symptoms (principal)
CPT/HCPCS: 90870; J0330; J0706; J7040

== ENCOUNTER 2020-05-31 05:53 | Outpatient (RCR) | payer MEDICARE ==
[~2020-05-31] VITALS: Ht 152.4 cm; Wt 31.8 kg
[2020-05-31] VITALS (7 sets, daily range): BP systolic 138–160; BP diastolic 46–74
[2020-05-31] MEDS ORDERED: Labetalol 5mg/ml 20ml vial IV ONE (05:54)
[2020-05-31] MEDS ORDERED: NS 500ML ONE (05:54)
[2020-05-31] MEDS ORDERED: Etomidate 40mg/20ml Inj IV ONE ×2 (05:54→07:30)
[2020-05-31] MEDS ORDERED: Succinylcholine 20mg/ml 10ml vial ONE (05:54)
[2020-05-31] MEDS ORDERED: Caffeine Citrate 60mg/3ml vial ONE (05:54)
[2020-06-28] VITALS (7 sets, daily range): BP systolic 102–135; BP diastolic 31–67
[2020-06-28] MEDS ORDERED: Etomidate 40mg/20ml Inj IV ONE (06:00)
[2020-06-28] MEDS ORDERED: Succinylcholine 20mg/ml 10ml vial ONE (06:00)
[2020-06-28] MEDS ORDERED: Labetalol 5mg/ml 20ml vial IV ONE (06:00)
[2020-06-28] MEDS ORDERED: NS 500ML ONE (06:00)
[2020-06-28] MEDS ORDERED: Caffeine Citrate 60mg/3ml vial INJ ONE (10:12)
== END 2020-06-28 | disposition home or self-care (01) ==
LOC: ECT 05:53
DX: F33.3 Major depressive disorder, recurrent, severe with psychotic symptoms (principal)
CPT/HCPCS: 90870; J0330; J0706; J7040

== ENCOUNTER 2020-07-12 05:19 | Outpatient (RCR) | payer MEDICARE ==
[2020-07-12] VITALS (7 sets, daily range): BP systolic 94–155; BP diastolic 41–65
[~2020-07-12] VITALS: Ht 152.4 cm; Wt 31.8 kg
[2020-07-12] MEDS ORDERED: Etomidate 40mg/20ml Inj IV ONE (05:20)
[2020-07-12] MEDS ORDERED: Caffeine Citrate 60mg/3ml vial ONE (05:20)
[2020-07-12] MEDS ORDERED: Succinylcholine 20mg/ml 10ml vial ONE (05:20)
[2020-07-12] MEDS ORDERED: NS 500ML ONE (05:20)
[2020-07-12] MEDS ORDERED: Labetalol 5mg/ml 20ml vial IV ONE (05:20)
== END 2020-07-29 | disposition home or self-care (01) ==
LOC: ECT 05:19
DX: F33.3 Major depressive disorder, recurrent, severe with psychotic symptoms (principal)
CPT/HCPCS: 90870; J0330; J0706; J7040

== ENCOUNTER 2020-08-02 05:40 | Outpatient (RCR) | payer MEDICARE ==
[2020-08-02] VITALS (7 sets, daily range): BP systolic 117–160; BP diastolic 43–72
[~2020-08-02] VITALS: Ht 152.4 cm; Wt 31.8 kg
[2020-08-02] MEDS ORDERED: Etomidate 40mg/20ml Inj IV ONE (05:41)
[2020-08-02] MEDS ORDERED: Caffeine Citrate 60mg/3ml vial ONE (05:41)
[2020-08-02] MEDS ORDERED: Succinylcholine 20mg/ml 10ml vial ONE (05:41)
[2020-08-02] MEDS ORDERED: NS 500ML ONE (05:41)
[2020-08-02] MEDS ORDERED: Caffeine Citrate 60mg/3ml vial INJ ONE (10:30)
[2020-08-02] MEDS ORDERED: Etomidate 40mg/20ml Inj IV SCH (10:30)
== END 2020-08-28 | disposition home or self-care (01) ==
LOC: ECT 05:40
DX: F33.3 Major depressive disorder, recurrent, severe with psychotic symptoms (principal)
CPT/HCPCS: 90870; J0330; J0706; J7040

== ENCOUNTER 2020-08-30 08:12 | Outpatient (RCR) | payer MEDICARE ==
[2020-08-30] VITALS (7 sets, daily range): BP systolic 123–167; BP diastolic 56–83
[~2020-08-30] VITALS: Ht 152.4 cm; Wt 31.8 kg
[2020-08-30] MEDS ORDERED: Caffeine Citrate 60mg/3ml vial ONE ×2 (08:13)
[2020-08-30] MEDS ORDERED: NS 500ML ONE ×2 (08:13)
[2020-08-30] MEDS ORDERED: Etomidate 40mg/20ml Inj IV ONE ×2 (08:13)
[2020-08-30] MEDS ORDERED: Succinylcholine 20mg/ml 10ml vial ONE ×2 (08:13)
[2020-08-30] MEDS ORDERED: Caffeine Citrate 60mg/3ml vial INJ ONE (10:26)
[2020-08-30] MEDS ORDERED: Etomidate 40mg/20ml Inj IV SCH (10:26)
[2020-09-25] VITALS (7 sets, daily range): BP systolic 135–169; BP diastolic 51–69
[2020-09-25] MEDS ORDERED: Caffeine Citrate 60mg/3ml vial INJ ONE (10:37)
[2020-09-25] MEDS ORDERED: Etomidate 40mg/20ml Inj IV SCH (10:37)
== END 2020-09-28 | disposition home or self-care (01) ==
LOC: ECT 08:12
DX: F33.3 Major depressive disorder, recurrent, severe with psychotic symptoms (principal)
CPT/HCPCS: 90870; J0330; J0706; J7040

== ENCOUNTER 2020-10-06 05:14 | Outpatient (RCR) | payer MEDICARE ==
[~2020-10-06] VITALS: Ht 152.4 cm; Wt 31.8 kg
[2020-10-06] VITALS (7 sets, daily range): BP systolic 105–169; BP diastolic 49–81
[2020-10-06] MEDS ORDERED: NS 500ML ONE (05:15)
[2020-10-06] MEDS ORDERED: Caffeine Citrate 60mg/3ml vial ONE (05:15)
[2020-10-06] MEDS ORDERED: Etomidate 40mg/20ml Inj IV ONE (05:15)
[2020-10-06] MEDS ORDERED: Succinylcholine 20mg/ml 10ml vial ONE (05:15)
[2020-10-20] VITALS (7 sets, daily range): BP systolic 102–159; BP diastolic 41–84
[2020-10-20] MEDS ORDERED: Succinylcholine 20mg/ml 10ml vial ONE (06:00)
[2020-10-20] MEDS ORDERED: NS 500ML ONE (06:00)
[2020-10-20] MEDS ORDERED: Caffeine Citrate 60mg/3ml vial ONE (06:00)
== END 2020-10-29 | disposition home or self-care (01) ==
LOC: ECT 05:14
DX: F33.3 Major depressive disorder, recurrent, severe with psychotic symptoms (principal)
CPT/HCPCS: 90870; J0330; J0706; J7040

== ENCOUNTER 2020-11-20 06:31 | Outpatient (RCR) | payer MEDICARE ==
[~2020-11-20] VITALS: Ht 152.4 cm; Wt 31.8 kg
[2020-11-20] VITALS (7 sets, daily range): BP systolic 120–158; BP diastolic 37–65
[2020-11-20] MEDS ORDERED: Succinylcholine 20mg/ml 10ml vial ONE (06:32)
[2020-11-20] MEDS ORDERED: NS 500ML ONE (06:32)
[2020-11-20] MEDS ORDERED: Labetalol 5mg/ml 20ml vial IV ONE (06:32)
[2020-11-20] MEDS ORDERED: Etomidate 40mg/20ml Inj IV ONE (06:32)
[2020-11-20] MEDS ORDERED: Caffeine Citrate 60mg/3ml vial ONE (06:32)
== END 2020-11-26 | disposition home or self-care (01) ==
LOC: ECT 06:31
DX: F33.3 Major depressive disorder, recurrent, severe with psychotic symptoms (principal)
CPT/HCPCS: 90870; J0330; J0706; J7040